=== PATIENT | female | born 1945 | race Caucasian/White ===

== ENCOUNTER → 2017-05-18 | Outpatient (CLI) | payer MEDICARE, BC ==
[~2017-05-18] MED LIST: ACIP20TA6 PO; PRED20 PO
[2017-05-18 14:24] LABS: ALBUMIN 3.6 GM/DL (3.4-5.0); AST (GOT) 19 U/L (15-37); AUTOMATED NEUTROPHIL # 5.3 TH/MM3 (1.8-7.7); BASOPHIL # 0.1 TH/MM3 (0-0.2); BICARBONATE 24.5 MEQ/L (21.0-32.0); BLOOD UREA NITROGEN 14 MG/DL (7-18); CALCIUM 9.3 MG/DL (8.5-10.1); CHLORIDE 107 MEQ/L (98-107); CREATININE 0.98 MG/DL (0.50-1.00); EOSINOPHIL # 0.3 TH/MM3 (0-0.4); EOSINOPHIL % 3.5 % (0.0-4.0); GLOMERULAR FILTRATION RATE 56 ML/MIN (>89); GLUCOSE,FASTING 105 MG/DL (74-99); HEMATOCRIT 41.4 % (35.0-46.0); HEMOGLOBIN 13.8 GM/DL (11.6-15.3); LYMPH % 27.1 % (9.0-44.0); LYMPHOCYTE # 2.4 TH/MM3 (1.0-4.8); MEAN CELL VOLUME 91.1 FL (80.0-100.0); MEAN CORPUSCULAR HEMOGLOBIN 30.4 PG (27.0-34.0); MEAN CORPUSCULAR HGB CONC 33.4 % (32.0-36.0); MEAN PLATELET VOLUME 9.5 FL (7.0-11.0); MONO % 8.6 % (0.0-8.0); MONOCYTE # 0.8 TH/MM3 (0-0.9); NEUT % 59.8 % (16.0-70.0); PLATELET COUNT 241 TH/MM3 (150-450); RED BLOOD COUNT 4.55 MIL/MM3 (4.00-5.30); RED CELL DISTRIBUTION WIDTH 13.4 % (11.6-17.2); SODIUM (NA) 141 MEQ/L (136-145); WHITE BLOOD COUNT 8.8 TH/MM3 (4.0-11.0)
[2017-05-18 14:25] LABS: ALT (GPT) 19 U/L (10-53); CHOLESTEROL 163 MG/DL (120-200)
[2017-05-18 14:35] LABS: ALKALINE PHOSPHATASE 95 U/L (45-117); CHOLESTEROL/ HDL RATIO 2.57 RATIO; HDL CHOLESTEROL 63.3 MG/DL (40.0-60.0); LDL CHOLESTEROL 70 MG/DL (0-99); TOTAL BILIRUBIN ADULT 1.2 MG/DL (0.2-1.0); TOTAL PROTEIN 7.6 GM/DL (6.4-8.2); TRIGLYCERIDES 148 MG/DL (42-150)
== END ==
LOC: PLAB 08:36
PROVIDERS: ATTEND Family Medicine
DX: Z13.6 Encounter for screening for cardiovascular disorders (principal)
CPT/HCPCS: 36415; 80053; 80061; 84443; 85025